=== PATIENT | male | born 1970 | race Hispanic/Latino ===

== ENCOUNTER 2016-06-11 12:15 | Emergency (ER) | payer BC ==
[2016-06-11 12:39] VITALS: BP 119/72; PULSE 86; RESP 18; TEMP 99.7; O2SAT 99
--- NOTE | 2016-06-11 14:02 | ED PDOC ---
HPI: General Adult Time Seen by Provider: 06/11/16 13:50 Chief Complaint (Nursing): Flu-like Symptoms Chief Complaint (Provider): Flu-like Symptoms History Per: Patient History/Exam Limitations: no limitations Onset/Duration Of Symptoms: Days (x4 days) Current Symptoms Are (Timing): Still Present Additional Complaint(s): 45 y/o male who presents to the emergency department with a complaint of body aches, chills, headache, sore throat, shortness of breath, cough, sputum, diarrhea, and fever. Reports taking Mucinex DM for the relief of symptoms. Denies vomiting or any recent travel. Past Medical History Reviewed: Historical Data, Nursing Documentation, Vital Signs Vital Signs: Last Vital Signs Temp 99.7 F H 06/11/16 12:36 Pulse 86 06/11/16 12:36 Resp 18 06/11/16 12:36 BP 119/72 06/11/16 12:36 Pulse Ox 99 06/11/16 14:53 - Medical History PMH: No Chronic Diseases - Surgical History Surgical History: No Surg Hx - Family History Family History: States: Unknown Family Hx - Social History Current smoker - smoking cessation education provided: Yes (Heavy Smoker > 10 Cigarettes Daily) Alcohol: Social Drugs: Denies - Home Medications Home Medications: Ambulatory Orders Medication Instructions Recorded Oseltamivir Phosphate [Tamiflu] 75 mg PO BID #10 capsule 06/11/16 - Allergies Allergies/Adverse Reactions: Allergies Allergy/AdvReac Type Severity Reaction Status Date / Time meperidine HCl [From Demerol] Allergy SHORTNESS Verified 06/11/16 12:36 OF BREATH Review of Systems ROS Statement: Except As Marked, All Systems Reviewed And Found Negative Constitutional: Positive for: Fever, Chills, Other (Body aches) ENT: Positive for: Throat Pain (Sore throat) Respiratory: Positive for: Cough, Shortness of Breath, Sputum (Milky) Gastrointestinal: Positive for: Diarrhea. Negative for: Vomiting Physical Exam - Reviewed Nursing Documentation Reviewed: Yes Vital Signs Reviewed: Yes - Physical Exam Appears: Positive for: Non-toxic, No Acute Distress Head Exam: Positive for: ATRAUMATIC, NORMOCEPHALIC Skin: Positive for: Normal Color, Warm, Dry ENT: Positive for: Other (Tonsillar erythema). Negative for: Tonsillar Exudate , Tonsillar Swelling Neck: Positive for: Normal, Supple Cardiovascular/Chest: Positive for: Regular Rate, Rhythm. Negative for: Murmur Respiratory: Positive for: Normal Breath Sounds. Negative for: Accessory Muscle Use, Respiratory Distress Neurologic/Psych: Positive for: Alert, Oriented - ECG O2 Sat by Pulse Oximetry: 99 (RA) Pulse Ox Interpretation: Normal - Radiology X-Ray: Interpreted by Me X-Ray Interpretation: No Acute Disease Medical Decision Making Medical Decision Making: Time: 13:50 Initial impression: Flu-like symptoms Initial plan: --Influenza A B Stat --Chest Two Views (PA/LAT) (RAD) --Motrin 600 mg PO --Revaluation Time: 14:50 --Positive for Influenza chest xray negative for flu d/c with tamiflu supportive care instructions and to return if with persistent fever, cough VS stable Scribe Attestation: Documented by Margaux Beach, acting as a scribe for Sonal Das PA-C. Provider Scribe Attestation: All medical record entries made by the Scribe were at my direction and personally dictated by me. I have reviewed the chart and agree that the record accurately reflects my personal performance of the history, physical exam, medical decision making, and the department course for this patient. I have also personally directed, reviewed, and agree with the discharge instructions and disposition. Disposition - Clinical Impression Clinical Impression: Influenza - Patient ED Disposition Is Patient to be Admitted: No Counseled Patient/Family Regarding: Studies Performed, Diagnosis, Need For Followup, Rx Given - Disposition Disposition: Routine/Home Disposition Time: 15:22 Condition: STABLE Prescriptions: Oseltamivir Phosphate [Tamiflu] 75 mg PO BID #10 capsule Instructions: Influenza (ED) Forms: [facility] ED School/Work Excuse
--- NOTE | 2016-06-11 16:03 | RAD ---
HISTORY: cough COMPARISON: No prior. TECHNIQUE: Chest PA and lateral FINDINGS: LUNGS: No active pulmonary disease. PLEURA: No significant pleural effusion identified. No pneumothorax apparent. CARDIOVASCULAR: Normal. OSSEOUS STRUCTURES: No significant abnormalities. VISUALIZED UPPER ABDOMEN: Normal. OTHER FINDINGS: None. IMPRESSION: No radiographic evidence of pneumonia.
== END 2016-06-11 15:56 | disposition home or self-care (01) ==
LOC: H.ER 12:15
DX: J11.1 Influenza due to unidentified influenza virus with other respiratory manifestations (principal); R06.02 Shortness of breath; R05 Cough; J02.9 Acute pharyngitis, unspecified; R51 Headache